=== PATIENT | male | born 1985 | race Caucasian/White ===

== ENCOUNTER 2022-08-21 00:51 | Emergency (ER) | payer SELFPAY ==
[~2022-08-21] VITALS: Ht 175.3 cm; Wt 79.4 kg
[2022-08-21 01:10] VITALS: BP 109/70
--- NOTE | 2022-08-21 01:13 | NUR ---
TO LOBBY A/W BED VIA W/C
--- NOTE | 2022-08-21 01:45 | NUR ---
SEEN AND EXAMINED BY TIARRA
--- NOTE | 2022-08-21 02:35 | NUR ---
PT W/C ASSISTED TO BED #8
--- NOTE | 2022-08-21 02:40 | NUR ---
RECEIVED IN BED 8 WITH C/O RLE PAIN S/P TRIP AND FALL WHILE LEAVING BAR. OBVIOUS DEFORMITY NOTED TO RIGHT ANKLE
--- NOTE | 2022-08-21 02:45 | NUR ---
IV ESTABLISHED, ATTECHED TO MONITOR. PREPARING FOR MODERATE SEDATION
[2022-08-21] MEDS ORDERED: NACL 0.9% 1,000 ML IV ONE (02:50)
[2022-08-21] MEDS ORDERED: KETAMINE 500 MG/5 ML VIAL IVP ONE (02:50)
--- NOTE | 2022-08-21 03:30 | NUR ---
MODERATE SEDATION BEGUN, CONSENT WAS SIGNED. PRTE PROCEDURE TEACHING DONE, PT EXPRESSES UNDERSTANDING
[2022-08-21] MEDS ORDERED: PROPOFOL 200 MG/20 ML VIAL IV ONE ×2 (03:38→03:40)
--- NOTE | 2022-08-21 03:53 | NUR ---
SPLINT X1 STIRUPP, SHORT POSTERIOR LEG SPLINT APPLIED. CMS CHECK BEFORE/AFTER.
[2022-08-21] MEDS ORDERED: ACET-8386 PO (05:12)
[2022-08-21] MEDS ORDERED: IBUP-2213 PO (05:12)
[2022-08-21] MEDS ORDERED: KETOROLAC 15 MG/ML VIAL IVP ONE (05:15)
--- NOTE | 2022-08-21 05:35 | NUR ---
PATIENT WAS GIVEN CRUTCHES, DEMONSTRATED KNOWLEDGE OF HOW TO USE THEM.
[2022-08-21 06:10] VITALS: BP 109/70
--- NOTE | 2022-08-21 06:10 | NUR ---
Patient discharged with CRUTCHES v/s stable. Written and verbal after care instructions given and explained. Patient alert, oriented and verbalized understanding of instructions. Ambulatory with steady gait. All questions addressed prior to discharge. ID band removed. Patient advised to follow up with PMD. Rx of hydrocodone, ibuprofen given. Patient educated on indication of medication including possible reaction and side effects. Opportunity to ask questions provided and answered.
== END 2022-08-21 06:10 | disposition home or self-care (01) ==
LOC: MED 00:51
DX: S82.831A Other fracture of upper and lower end of right fibula, initial encounter for closed fracture (principal); Z79.899 Other long term (current) drug therapy; Y04.0XXA Assault by unarmed brawl or fight, initial encounter; Y93.89 Activity, other specified; Y92.89 Other specified places as the place of occurrence of the external cause; Y99.8 Other external cause status
CPT/HCPCS: 27788; 73610; 96360; 99152; 99285; J2704; J7030; Q0092